=== PATIENT | female | born 1985 | race Caucasian/White ===

== ENCOUNTER → 2017-12-07 | Outpatient (CLI) | payer OTHER ==
[2017-12-07 13:09] LABS: BASO % 0.2 %; BASO ABS # 0.02 K/uL (0-0.2); EOS % 0.7 %; EOS ABS # 0.06 K/uL (0-0.5); HEMATOCRIT 44.4 % (37-47); HEMOGLOBIN 15.2 g/dL (12.0-16.0); IG# 0.02 K/uL (0.00-0.02); LYMPH % 24.4 %; LYMPH ABS # 2.17 K/uL (1.2-3.4); MEAN CELL VOLUME 85.7 fL (80-100); MEAN CORPUSCULAR HEMOGLOBIN 29.3 pg (25-34); MEAN CORPUSCULAR HGB CONC 34.2 g/dl (32-36); MEAN PLATELET VOLUME 10.2 fL (7.4-10.4); MONO % 7.9 %; NEUT % 66.6 %; NEUT ABS # 5.93 K/uL (1.4-6.5); PLATELET COUNT 328 K/uL (130-400); RED CELL DISTRIBUTION WIDTH CV 12.9 % (11.5-14.5); RED CELL DISTRIBUTION WIDTH SD 40.4 fL (36.4-46.3)
[2017-12-07 13:23] LABS: BLOOD UREA NITROGEN 12 mg/dl (7-18); CALCIUM 8.9 mg/dl (8.5-10.1); CARBON DIOXIDE 24 mmol/L (21-32); CREATININE 0.96 mg/dl (0.60-1.20); GLUCOSE 75 mg/dl (70-99); SODIUM 135 mmol/L (136-145)
== END | disposition home or self-care (01) ==
LOC: C.LAB1850 10:47
PROVIDERS: ATTEND Nurse Practitioner Adult Health
DX: R53.83 Other fatigue (principal); R06.02 Shortness of breath

== ENCOUNTER → 2017-12-07 | Outpatient (CLI) | payer OTHER ==
[~2017-12-07] MED LIST: OPTIRAY 320 IV PRN
--- NOTE | 2017-12-07 17:13 | DIAGNOSTIC IMAGING REPORT ---
(CHEST FOR PE) ANGIO WITH CT DOSE: 186.41 mGy.cm HISTORY: 32 years-old Female with acute atypical chest pain with elevated d-dimer level. TECHNIQUE: Multiple CTA images of the chest were obtained after the intravenous administration of 83 ml Optiray 320. Coronal and sagittal MIPS were obtained from the axial data set and were submitted for review. A dose lowering technique was utilized adhering to the principles of ALARA. COMPARISON: None. FINDINGS: CTA: Heart is normal in size without pericardial effusion. The thoracic aorta is normal in both course and caliber without aneurysm or dissection. The imaged great vessels appear to be patent. The pulmonary arterial tree is opacified to level of the segmental branches and demonstrates no focal filling defects to suggest pulmonary thromboembolic disease. The distal segmental and subsegmental branches are not well opacified secondary to contrast bolus timing. CT CHEST: No dominant thyroid nodule or pathologic adenopathy identified. Minimal residual thymic tissue of the anterior mediastinum. There is no pneumothorax, pleural effusion, focal airspace consolidation or overt pulmonary edema. There is minimal subsegmental bibasilar atelectasis. Calcified granuloma of the superior segment left lower lobe. Suggested 2 mm nodule of the right lower lobe on image 133 series 4 is likely benign in a patient of this age group. Central airways are patent. No acute abnormality of the imaged upper abdomen. Pectus excavatum deformity of the chest. The bilateral breast parenchyma appears unremarkable. The bones of the chest appear intact. Bone island of the T11 vertebral body. IMPRESSION: 1. No acute intrathoracic abnormality identified, specifically no acute aortic pathology or evidence of pulmonary thromboembolic disease. 2. No focal airspace consolidation or pathologic adenopathy. 3. Pectus excavatum deformity of the chest. The above report was generated using voice recognition software. It may contain grammatical, syntax or spelling errors. Electronically signed by: Clyde Cisneros M.D. 12/07/2017 5:11 PM Dictated Date/Time: 12/07/2017 5:05 PM
== END | disposition home or self-care (01) ==
LOC: C.CTS 15:58
PROVIDERS: ATTEND Nurse Practitioner Adult Health
DX: R94.31 Abnormal electrocardiogram [ECG] [EKG] (principal); R07.89 Other chest pain; R79.89 Other specified abnormal findings of blood chemistry; Z30.41 Encounter for surveillance of contraceptive pills; R06.02 Shortness of breath